=== PATIENT | female | born 1935 | race Caucasian/White ===

== ENCOUNTER 2017-11-18 08:52 | Emergency (ER) | payer MEDICARE, BC ==
[~2017-11-18] VITALS: Ht 5116.1 cm; Wt 47.0 kg
[~2017-11-18 08:52] MED LIST: ASPI81TA52 PO; CYCL-1 PO; DOCU-20 PO; ESOM40CA30 PO; LEVO25TA7 PO; LISI-604 PO; NIFE60TA69 PO
[2017-11-18 09:51] VITALS: BP 150/88
== END 2017-11-18 09:54 | disposition home or self-care (01) ==
LOC: ER 08:52
DX: R21 Rash and other nonspecific skin eruption (principal); L98.8 Other specified disorders of the skin and subcutaneous tissue; I10 Essential (primary) hypertension; Z79.82 Long term (current) use of aspirin; Z88.0 Allergy status to penicillin
CPT/HCPCS: 99281

== ENCOUNTER 2019-05-23 03:05 | Inpatient (IN) | payer MEDICARE, BC ==
[~2019-05-23] VITALS: Ht 154.9 cm; Wt 49.1 kg
[~2019-05-23 03:05] MED LIST changes: -ESOM40CA30 PO; +ESOM40CA49 PO
[2019-05-23 03:39] LABS: ALANINE AMINOTRANSFERASE 24 U/L (12-78); ALBUMIN 3.7 G/DL (3.4-5.0); ALKALINE PHOSPHATASE 102 IU/L (46-116); ANION GAP 9 (8-16); ASPARTATE AMINO TRANSFERASE 20 U/L (10-37); BILIRUBIN,TOTAL 0.3 MG/DL (0.1-1.0); BLOOD UREA NITROGEN 21 MG/DL (7-18); BUN/CREATININE RATIO 15.9 (6.6-38.0); CALCIUM 9.3 MG/DL (8.5-10.1); CHLORIDE 101 MMOL/L (99-107); CREATININE 1.32 MG/DL (0.40-0.90); GLUCOSE 139 MG/DL (70-104); POTASSIUM 4.3 MMOL/L (3.5-5.1); SODIUM 134 MMOL/L (135-145); TOTAL CARBON DIOXIDE 23.6 MMOL/L (24-32); TOTAL PROTEIN 7.5 G/DL (6.4-8.2); eGFR 38 ML/MIN
[2019-05-23 03:40] LABS: BASOPHILS % (AUTO) 0.2 % (0-1); EOSINOPHILS # (AUTO) 0.1 X10'3 (0-0.9); EOSINOPHILS % (AUTO) 1.5 % (0-6); HEMATOCRIT 35.5 % (35.0-45.0); LYMPHOCYTES # (AUTO) 1.2 X10'3 (1.1-4.8); LYMPHOCYTES % (AUTO) 13.3 % (21-51); MEAN CORPUSCULAR HEMOGLOBIN 28.9 PG (27.0-31.0); MEAN CORPUSCULAR HGB CONC 33.7 g/dL (33.0-36.5); MEAN CORPUSCULAR VOLUME 85.6 FL (78-98); MEAN PLATELET VOLUME 7.6 FL (7.4-10.4); MONOCYTES # (AUTO) 0.5 X10'3 (0-0.9); MONOCYTES % (AUTO) 5.3 % (2-12); NEUTROPHILS % (AUTO) 79.7 % (42-75); PARTIAL THROMBOPLASTIN TIME 26 SECONDS (22-32); PLATELET COUNT 342 X10'3 (140-440); RED BLOOD COUNT 4.15 X10'6 (4.20-5.60); RED CELL DISTRIBUTION WIDTH 14.4 % (11.5-14.5); WHITE BLOOD COUNT 8.8 X10'3 (4.5-11.0)
[2019-05-23 03:44] LABS: TROPONIN I < 0.04 NG/ML (0.0-0.05)
[2019-05-23] MEDS ORDERED: mag hydrox/Alum hydrox/simeth 30ml oral suspension PO ONE (04:00)
[2019-05-23] MEDS ORDERED: ESOMEPRAZOLE 40 MG VIAL IV ONE (04:00)
[2019-05-23] MEDS ORDERED: famotidine 20mg tablet PO ONE (04:00)
[2019-05-23] MEDS ORDERED: pantoprazole 40 MG vial IV ONE (04:00)
--- NOTE | 2019-05-23 04:13 | NUR ---
walked pt to the bathroom, she states she had diarrhea
--- NOTE | 2019-05-23 05:24 | NUR ---
pt is supine in bed, no needs at this time, warm blanket given
--- NOTE | 2019-05-23 05:27 | NUR ---
walked pt to the bathroom states she is going to have loose stool again, let provider know
[2019-05-23] MEDS ORDERED: loperamide 2mg capsule PO ONE (05:30)
--- NOTE | 2019-05-23 05:45 | NUR ---
spoke to pt about ng tube placement, she wants to call her children first and has had to run to br multiple times in last hour,
[2019-05-23] MEDS ORDERED: LEVO75TA PO (05:53)
[2019-05-23] MEDS ORDERED: LEVO25TA2 PO (05:53)
[2019-05-23] MEDS ORDERED: OMEP40CA13 PO (05:54)
--- NOTE | 2019-05-23 05:57 | NUR ---
provider letting pt know she has a small bowl obstruction
--- NOTE | 2019-05-23 06:22 | NUR ---
spoke to oncoming nurse re NG tube, pt is going to CT and does not really want it, would like to wait, she is ok with it
--- NOTE | 2019-05-23 06:27 | NUR ---
PT TO CT
[2019-05-23] MEDS ORDERED: LIDOcaine Viscous 15ml cup MM ONE (07:05)
[2019-05-23] MEDS ORDERED: HYDROmorphone inj. 0.5 MG/0.5 ML DISP.SYRIN IV PRN (07:10)
[2019-05-23] MEDS ORDERED: metoclopramide 5 mg/ml inj IV PRN (07:10)
[2019-05-23] MEDS ORDERED: potassium CL 10mEq/100ml bag 100 ML IV PRN ×2 (07:10)
[2019-05-23] MEDS ORDERED: potassium Cl 20 mEq SR tablet PO PRN ×2 (07:10)
[2019-05-23] MEDS ORDERED: magnesium 2GM in 50ml NS 50 ML IV PRN (07:10)
[2019-05-23] MEDS ORDERED: acetaminophen 325mg tablet PO PRN (07:10)
[2019-05-23] MEDS ORDERED: magnesium 4gm in 100ml NS 100 ML IV PRN (07:10)
[2019-05-23] MEDS ORDERED: ondansetron/PF 4mg/2ml inj IV PRN (07:10)
[2019-05-23] MEDS ORDERED: mag hydrox/Alum hydrox/simeth 30ml oral suspension PO PRN (07:10)
[2019-05-23] MEDS ORDERED: magnesium hydroxide 30ml (MOM) UD suspension PO PRN (07:10)
[2019-05-23] MEDS ORDERED: magnesium Cl slow-release 64mg tablet PO PRN (07:10)
[2019-05-23] MEDS ORDERED: NIFEdipine XL 30mg tablet PO SCH (08:00)
[2019-05-23] MEDS: K and/or MAG REPLACEMENT MC SCH (08:00)
[2019-05-23] MEDS ORDERED: lisinopril 5mg tablet PO SCH (08:00)
[2019-05-23] MEDS ORDERED: enalaprilat dihydrate 2.5mg/2ml vial IV PRN (08:05)
[2019-05-23] MEDS ORDERED: diatrozoate meglu/diatrozoate sod (37% iodine) 120ML oral solution PO ONE ×2 (08:05→18:40)
[2019-05-23] MEDS: ESOMEPRAZOLE 40 MG VIAL IV SCH (08:21)
[2019-05-23] MEDS: normal saline 1000ml 1,000 ML IV SCH ×2 (08:21→20:26)
--- NOTE | 2019-05-23 08:33 | NUR ---
REPORT ATTEMPTED, ROOM NOT CLEAN, NURSE TO BE ALEKSANDAR
--- NOTE | 2019-05-23 11:00 | NUR ---
Pt arrived to floor. Report given by Radha Orr RN
[2019-05-23 11:15] VITALS: BP 187/102
[2019-05-23] MEDS: proCHLORperazine 10 MG/2 ml inj IV PRN (12:13)
--- NOTE | 2019-05-23 12:30 | NUR ---
BP high when pt arrived to floor 180's/100. PRN vasotec given. BP rechecked 40 minutes later and it was 183/92. Dr Hui aware and will be adding bp med.
[2019-05-23 16:30] VITALS: BP 169/84
[2019-05-23] MEDS: hydrALAZINE 20mg/ml inj. IV PRN (16:49)
[2019-05-23 17:24] VITALS: BP 161/88
--- NOTE | 2019-05-23 18:48 | NUR ---
Received report from Johanne BELL pt is resting on bed NG hooked up to suction on RA in no apparent distress
[2019-05-23 19:00] VITALS: BP 156/90
--- NOTE | 2019-05-23 19:00 | NUR ---
Problems reprioritized. Patient report given, questions answered & plan of care reviewed with Velia BELL.
[2019-05-23] MEDS ORDERED: diatr meglu/diatrizoate 30ml oral sol.-(3 dose) bottle PO ONE (19:35)
[2019-05-23] MEDS ORDERED: temazepam 15mg capsule PO PRN (21:00)
[2019-05-23] MEDS ORDERED: diatr meglu/diatrizoate 30ml oral sol.-(3 dose) bottle PO SCH ×2 (21:00)
[2019-05-24] VITALS: BP 158/84
--- NOTE | 2019-05-24 06:36 | NUR ---
Gave report to Johanne BELL pt is resting on RA, NG hooked up to low suction, in no apparent distress, call light and items of freq use within reach.
[2019-05-24 07:00] VITALS: BP 178/101
[2019-05-24] MEDS: K and/or MAG REPLACEMENT MC SCH (07:11)
[2019-05-24] MEDS: ESOMEPRAZOLE 40 MG VIAL IV SCH (07:14)
[2019-05-24] MEDS: hydrALAZINE 20mg/ml inj. IV PRN (07:57)
[2019-05-24 08:38] VITALS: BP 152/79
[2019-05-24 11:00] VITALS: BP 155/93
[2019-05-24] MEDS: proCHLORperazine 10 MG/2 ml inj IV PRN (12:31)
[2019-05-24] MEDS: normal saline 1000ml 1,000 ML IV SCH (12:38)
--- NOTE | 2019-05-24 18:36 | NUR ---
Problems reprioritized. Patient report given, questions answered & plan of care reviewed with Velia BELL.
--- NOTE | 2019-05-24 18:36 | NUR ---
Received report from Johanne BELL pt is resting on RA in no apparent distress, call light and items of freq use within reach.
[2019-05-24 19:00] VITALS: BP 164/90
[2019-05-25 00:40] VITALS: BP 162/86
[2019-05-25] MEDS: normal saline 1000ml 1,000 ML IV SCH (02:56)
--- NOTE | 2019-05-25 06:12 | NUR ---
Problems reprioritized. Patient report given, questions answered & plan of care reviewed with Dayan BELL.
[2019-05-25] MEDS: ESOMEPRAZOLE 40 MG VIAL IV SCH (07:36)
[2019-05-25] MEDS: hydrALAZINE 20mg/ml inj. IV PRN (07:40)
[2019-05-25] MEDS: K and/or MAG REPLACEMENT MC SCH (07:43)
--- NOTE | 2019-05-25 07:46 | NUR ---
Problems reprioritized. Patient report given, questions answered & plan of care reviewed with RAY Pan.
--- NOTE | 2019-05-25 09:18 | NUR ---
fitness technician called to report pt hr is 180's. She is using the restroom and walking around. Viviane BELL aware.
[2019-05-25 11:13] VITALS: BP 131/75
[2019-05-25] MEDS ORDERED: METO25TA6 PO (13:08)
--- NOTE | 2019-05-25 13:53 | NUR ---
Discharge completed with education on nursing end, waiting on ride home.
--- NOTE | 2019-05-25 14:07 | NUR ---
All belongings bagged and sent with patient. Education on next doses for meds completed with patient with understanding stated. Patient dressed self. Report of 2 BMs today and charted. Side effects discussed with patient on new HTN medications and education completed. Patient understands to take 1/2 a tab in the AM and at NOC, Understanding completed and stated by patient.
[2019-05-26] MEDS ORDERED: levoTHYROXINE 25mcg tablet PO SCH (08:00)
[2019-05-26] MEDS ORDERED: aspirin 81mg tablet.DR PO SCH (08:00)
[2019-05-26] MEDS ORDERED: levoTHYROXINE 75mcg tablet PO SCH (08:00)
== END 2019-05-25 14:36 | disposition home or self-care (01) | DRG 389 ==
LOC: ER 03:06 → SUR 3N 10:41
PROVIDERS: ADMIT Family Medicine; ATTEND Family Medicine
PROC: 0D9670Z Drainage of Stomach with Drainage Device, Via Natural or Artificial Opening (ICD-10-PCS; principal; 2019-05-23)
DX: K56.600 Partial intestinal obstruction, unspecified as to cause (principal); E87.1 Hypo-osmolality and hyponatremia; N18.9 Chronic kidney disease, unspecified; E03.9 Hypothyroidism, unspecified; I12.9 Hypertensive chronic kidney disease with stage 1 through stage 4 chronic kidney disease, or unspecified chronic kidney disease; M19.90 Unspecified osteoarthritis, unspecified site; F32.9 Major depressive disorder, single episode, unspecified; F41.9 Anxiety disorder, unspecified; K59.00 Constipation, unspecified; R00.0 Tachycardia, unspecified; Z88.0 Allergy status to penicillin; Z87.440 Personal history of urinary (tract) infections; Z79.899 Other long term (current) drug therapy
CPT/HCPCS: 36415; 71045; 71250; 74176; 76937; 80053; 83605; 84484; 85025; 85610; 85730; 87081; 93005; 96374; 96375; 99285; G0378; J0360; J0780; J1170; J2405; J7030; Q9963

== ENCOUNTER 2021-06-03 06:26 | Emergency (ER) | payer MEDICARE, BC ==
[~2021-06-03] VITALS: Ht 154.9 cm; Wt 48.2 kg
[~2021-06-03 06:26] MED LIST changes: -CYCL-1 PO; -DOCU-20 PO; -ESOM40CA49 PO; +LEVO25TA2 PO; -LEVO25TA7 PO; -LISI-604 PO; +LISI-790 PO; +LOP25T PO; -NIFE60TA69 PO; +OMEP20TA23 PO; +TRAM50TA2 PO
[2021-06-03] MEDS ORDERED: pantoprazole 40 MG vial IV ONE (06:55)
[2021-06-03] MEDS ORDERED: normal saline 1000ML IV soln IVB ONE (06:55)
[2021-06-03 07:01] LABS: BASOPHILS % (AUTO) 0.1 % (0-1); EOSINOPHILS % (AUTO) 0.1 % (0-6); HEMATOCRIT 24.7 % (35.0-45.0); HEMOGLOBIN 7.8 g/dl (12.0-16.0); LYMPHOCYTES # (AUTO) 0.2 X10'3 (1.1-4.8); LYMPHOCYTES % (AUTO) 3.3 % (21-51); MEAN CORPUSCULAR HEMOGLOBIN 22.5 PG (27.0-31.0); MEAN CORPUSCULAR HGB CONC 31.4 g/dL (33.0-36.5); MEAN CORPUSCULAR VOLUME 71.5 FL (78-98); MEAN PLATELET VOLUME 7.2 FL (7.4-10.4); MONOCYTES # (AUTO) 0.2 X10'3 (0-0.9); MONOCYTES % (AUTO) 2.5 % (2-12); NEUTROPHILS # (AUTO) 6.5 X10'3 (1.8-7.7); PLATELET COUNT 310 X10'3 (140-440); RED BLOOD COUNT 3.46 X10'6 (4.20-5.60); RED CELL DISTRIBUTION WIDTH 18.2 % (11.5-14.5); WHITE BLOOD COUNT 6.9 X10'3 (4.5-11.0)
[2021-06-03 07:10] LABS: ALANINE AMINOTRANSFERASE 14 U/L (12-78); ALBUMIN 3.6 G/DL (3.4-5.0); ALKALINE PHOSPHATASE 91 IU/L (46-116); ANION GAP 11 (8-16); ASPARTATE AMINO TRANSFERASE 12 U/L (10-37); BILIRUBIN,TOTAL 0.3 MG/DL (0.1-1.0); BLOOD UREA NITROGEN 29 MG/DL (7-18); BUN/CREATININE RATIO 20.6 (6.6-38.0); CALCIUM 8.7 MG/DL (8.5-10.1); CHLORIDE 107 MMOL/L (99-107); CREATININE 1.41 MG/DL (0.40-0.90); GLUCOSE 149 MG/DL (70-104); POTASSIUM 3.8 MMOL/L (3.5-5.1); SODIUM 140 MMOL/L (135-145); TOTAL CARBON DIOXIDE 22.4 MMOL/L (24-32); TOTAL PROTEIN 7.2 G/DL (6.4-8.2); eGFR 35 ML/MIN
[2021-06-03 07:11] LABS: CLARITY,URINE SLIGHTLY CLOUDY (Clear); COLOR,URINE YELLOW (Yellow); GLUCOSE, URINE NEGATIVE (Neg); KETONES,URINE NEGATIVE (Neg); LEUKOCYTE ESTERASE ,URINE NEGATIVE (Neg); NITRITES, URINE NEGATIVE (Neg); OCCULT BLOOD,URINE LARGE (Neg); PH,URINE 6.5 (4.8-8.0); PROTEIN,URINE 100 mg/dl (Neg); UROBILINOGEN,URINE 0.2 E.U/dL (0.2-1.0)
[2021-06-03 07:16] LABS: LIPASE 102 U/L (73-393)
--- NOTE | 2021-06-03 07:20 | NUR ---
pt to xray
[2021-06-03 07:22] LABS: UA COLLECTION TYPE CLN CATCH MIDSTREAM
[2021-06-03 07:23] LABS: WBC,URINE 0-4 /HPF (0-4)
[2021-06-03 07:24] LABS: AMORPHOUS PHOSPHATES 1+; BACTERIA,URINE 2+ /HPF (Neg); MUCUS STRANDS FEW /LPF (Neg); SQUAMOUS EPITHELIAL CELL,UR FEW /LPF (FEW)
[2021-06-03] MEDS ORDERED: LIDOcaine Viscous 15ml cup MM ONE (09:35)
[2021-06-03] MEDS ORDERED: mag hydrox/Alum hydrox/simeth 30ml oral suspension PO ONE (09:35)
[2021-06-03 10:09] VITALS: BP 164/119
[2021-06-03] MEDS ORDERED: SUCR1ORA12 PO (10:55)
[2021-06-03] MEDS ORDERED: ONDA4TAB12 PO (10:55)
== END 2021-06-03 11:40 | disposition home or self-care (01) ==
LOC: ER 06:26
DX: R11.2 Nausea with vomiting, unspecified (principal); K21.9 Gastro-esophageal reflux disease without esophagitis; K44.9 Diaphragmatic hernia without obstruction or gangrene; I10 Essential (primary) hypertension; M19.90 Unspecified osteoarthritis, unspecified site; Z87.440 Personal history of urinary (tract) infections; Z86.2 Personal history of diseases of the blood and blood-forming organs and certain disorders involving the immune mechanism; Z88.0 Allergy status to penicillin; Z79.82 Long term (current) use of aspirin; Z79.899 Other long term (current) drug therapy
CPT/HCPCS: 36415; 74022; 80053; 81001; 83690; 84484; 85025; 87077; 87088; 87186; 96374; 99284; C9113; J7030

== ENCOUNTER 2022-02-02 09:45 | Emergency (ER) | payer MEDICARE, BC ==
[~2022-02-02] VITALS: Ht 154.9 cm; Wt 46.8 kg
[~2022-02-02 09:45] MED LIST changes: -LISI-790 PO; +LISI5TAB22 PO; +ONDA4TAB12 PO; +SUCR1ORA12 PO
[2022-02-02] MEDS ORDERED: normal saline 1000ML IV soln IVB ONE (09:55)
[2022-02-02] MEDS ORDERED: famotidine/PF 10 mg/ml inj IV ONE (09:55)
[2022-02-02] MEDS ORDERED: ondansetron/PF 4mg/2ml inj IV ONE (09:55)
[2022-02-02] MEDS ORDERED: NIFE90TA44 PO (10:02)
[2022-02-02 10:05] LABS: BASOPHILS % (AUTO) 0.2 % (0-1); EOSINOPHILS % (AUTO) 0.3 % (0-6); HEMATOCRIT 32.2 % (35.0-45.0); HEMOGLOBIN 10.7 g/dl (12.0-16.0); LYMPHOCYTES # (AUTO) 0.7 X10'3 (1.1-4.8); LYMPHOCYTES % (AUTO) 10.6 % (21-51); MEAN CORPUSCULAR HEMOGLOBIN 28.5 PG (27.0-31.0); MEAN CORPUSCULAR HGB CONC 33.2 g/dL (33.0-36.5); MEAN CORPUSCULAR VOLUME 85.8 FL (78-98); MEAN PLATELET VOLUME 7.2 FL (7.4-10.4); MONOCYTES # (AUTO) 0.5 X10'3 (0-0.9); MONOCYTES % (AUTO) 7.2 % (2-12); NEUTROPHILS # (AUTO) 5.2 X10'3 (1.8-7.7); NEUTROPHILS % (AUTO) 81.7 % (42-75); PLATELET COUNT 368 X10'3 (140-440); RED BLOOD COUNT 3.75 X10'6 (4.20-5.60); WHITE BLOOD COUNT 6.4 X10'3 (4.5-11.0)
[2022-02-02 10:19] LABS: ALANINE AMINOTRANSFERASE 12 U/L (12-78); ALBUMIN 3.4 G/DL (3.4-5.0); ALBUMIN/GLOBULIN RATIO 0.9 (1.1-1.5); ALKALINE PHOSPHATASE 98 IU/L (46-116); ANION GAP 9 (8-16); ASPARTATE AMINO TRANSFERASE 14 U/L (10-37); BILIRUBIN,TOTAL 0.4 MG/DL (0.1-1.0); BLOOD UREA NITROGEN 24 MG/DL (7-18); BUN/CREATININE RATIO 18.6 (6.6-38.0); CALCIUM 8.9 MG/DL (8.5-10.1); CHLORIDE 102 MMOL/L (99-107); CREATININE 1.29 MG/DL (0.40-0.90); GLUCOSE 118 MG/DL (70-104); LIPASE 92 U/L (73-393); POTASSIUM 4.4 MMOL/L (3.5-5.1); SODIUM 133 MMOL/L (135-145); TOTAL CARBON DIOXIDE 21.6 MMOL/L (24-32); TOTAL PROTEIN 7.1 G/DL (6.4-8.2); eGFR 39 ML/MIN
--- NOTE | 2022-02-02 10:20 | NUR ---
Patient states she unable to give urine at this time.
[2022-02-02] MEDS ORDERED: LIDOcaine Viscous 15ml cup MM ONE (11:25)
[2022-02-02] MEDS ORDERED: mag hydrox/Alum hydrox/simeth 30ml oral suspension PO ONE (11:25)
[2022-02-02] MEDS ORDERED: sucralfate 1 gm tablet PO ONE (11:25)
[2022-02-02 12:09] LABS: CLARITY,URINE CLEAR (Clear); GLUCOSE, URINE NEGATIVE (Neg); KETONES,URINE NEGATIVE (Neg); LEUKOCYTE ESTERASE ,URINE NEGATIVE (Neg); NITRITES, URINE NEGATIVE (Neg); OCCULT BLOOD,URINE TRACE-LYSED (Neg); PROTEIN,URINE TRACE mg/dl (Neg); UROBILINOGEN,URINE 0.2 E.U/dL (0.2-1.0)
[2022-02-02 12:10] LABS: COLOR,URINE STRAW (Yellow); UA COLLECTION TYPE CLN CATCH MIDSTREAM
[2022-02-02 12:15] LABS: BACTERIA,URINE 1+ /HPF (Neg); MUCUS STRANDS FEW /LPF (Neg); RBC,URINE 0-2 /HPF (0-2); SQUAMOUS EPITHELIAL CELL,UR FEW /LPF (FEW); WBC,URINE 0-4 /HPF (0-4)
[2022-02-02 13:16] VITALS: BP 178/94
== END 2022-02-02 13:57 | disposition home or self-care (01) ==
LOC: ER 09:46
DX: R10.13 Epigastric pain (principal); K29.70 Gastritis, unspecified, without bleeding; R11.0 Nausea; I10 Essential (primary) hypertension; K21.9 Gastro-esophageal reflux disease without esophagitis; Z86.2 Personal history of diseases of the blood and blood-forming organs and certain disorders involving the immune mechanism; Z87.440 Personal history of urinary (tract) infections; Z88.0 Allergy status to penicillin; Z79.82 Long term (current) use of aspirin; Z79.899 Other long term (current) drug therapy
CPT/HCPCS: 36415; 74018; 80053; 81001; 83690; 85025; 96361; 96374; 96375; 99284; J2405; J3490; J7030

== ENCOUNTER 2022-04-08 23:47 | Inpatient (IN) | payer MEDICARE, BC ==
[~2022-04-08] VITALS: Ht 154.9 cm; Wt 46.0 kg
[~2022-04-08 23:47] MED LIST changes: +NIFE90TA44 PO
[2022-04-09] MEDS ORDERED: morphine 2 MG/ML inj. syringe IV ONE (02:25)
[2022-04-09] MEDS ORDERED: ondansetron/PF 4mg/2ml inj IV ONE (02:25)
[2022-04-09 02:45] LABS: ALANINE AMINOTRANSFERASE 23 U/L (12-78); ALBUMIN 3.7 G/DL (3.4-5.0); ALBUMIN/GLOBULIN RATIO 0.9 (1.1-1.5); ALKALINE PHOSPHATASE 118 IU/L (46-116); ANION GAP 13 (8-16); ASPARTATE AMINO TRANSFERASE 24 U/L (10-37); BILIRUBIN,TOTAL 0.2 MG/DL (0.1-1.0); BLOOD UREA NITROGEN 32 MG/DL (7-18); BUN/CREATININE RATIO 21.5 (6.6-38.0); CALCIUM 9.1 MG/DL (8.5-10.1); CHLORIDE 106 MMOL/L (99-107); CREATININE 1.49 MG/DL (0.40-0.90); GLUCOSE 121 MG/DL (70-104); POTASSIUM 3.6 MMOL/L (3.5-5.1); SODIUM 141 MMOL/L (135-145); TOTAL CARBON DIOXIDE 22.5 MMOL/L (24-32); TOTAL PROTEIN 7.6 G/DL (6.4-8.2); eGFR 33 ML/MIN
[2022-04-09 02:49] LABS: BASOPHILS % (AUTO) 0.6 % (0-1); EOSINOPHILS # (AUTO) 0.1 X10'3 (0-0.9); EOSINOPHILS % (AUTO) 2.2 % (0-6); HEMATOCRIT 31.4 % (35.0-45.0); HEMOGLOBIN 10.4 g/dl (12.0-16.0); LYMPHOCYTES # (AUTO) 0.8 X10'3 (1.1-4.8); LYMPHOCYTES % (AUTO) 13.8 % (21-51); MEAN CORPUSCULAR HEMOGLOBIN 27.9 PG (27.0-31.0); MEAN CORPUSCULAR VOLUME 84.5 FL (78-98); MEAN PLATELET VOLUME 8.2 FL (7.4-10.4); MONOCYTES # (AUTO) 0.5 X10'3 (0-0.9); MONOCYTES % (AUTO) 7.8 % (2-12); NEUTROPHILS # (AUTO) 4.5 X10'3 (1.8-7.7); NEUTROPHILS % (AUTO) 75.6 % (42-75); PLATELET COUNT 297 X10'3 (140-440); RED BLOOD COUNT 3.72 X10'6 (4.20-5.60); RED CELL DISTRIBUTION WIDTH 16.3 % (11.5-14.5); WHITE BLOOD COUNT 5.9 X10'3 (4.5-11.0)
[2022-04-09] MEDS ORDERED: HYDROmorphone inj. 0.5 MG/0.5 ML DISP.SYRIN IV PRN (03:40)
[2022-04-09] MEDS ORDERED: ondansetron 4mg rapidly disintigrating tab PO PRN (03:40)
[2022-04-09] MEDS ORDERED: magnesium hydroxide 30ml (MOM) UD suspension PO PRN (03:40)
[2022-04-09] MEDS ORDERED: diphenhydrAMINE 50 mg/ml inj IV PRN (03:40)
[2022-04-09] MEDS ORDERED: acetaminophen 650mg rectal suppository RC PRN (03:40)
[2022-04-09] MEDS ORDERED: acetaminophen 325mg tablet PO PRN ×2 (03:40)
[2022-04-09] MEDS ORDERED: mag hydrox/Alum hydrox/simeth 30ml oral suspension PO PRN (03:40)
[2022-04-09] MEDS ORDERED: bisacodyl 10mg suppository rectal RC PRN (03:40)
[2022-04-09] MEDS ORDERED: diphenhydrAMINE 25mg capsule PO PRN (03:40)
[2022-04-09] MEDS ORDERED: morphine 2 MG/ML inj. syringe IV PRN ×2 (03:40)
[2022-04-09] MEDS ORDERED: HYDROcodone/acetaminophen 5mg/325mg tablet PO PRN (03:40)
[2022-04-09 04:23] LABS: CLARITY,URINE CLEAR (Clear); COLOR,URINE YELLOW (Yellow); GLUCOSE, URINE NEGATIVE (Neg); KETONES,URINE NEGATIVE (Neg); LEUKOCYTE ESTERASE ,URINE NEGATIVE (Neg); NITRITES, URINE NEGATIVE (Neg); OCCULT BLOOD,URINE TRACE-INTACT (Neg); PROTEIN,URINE 30 mg/dl (Neg); UROBILINOGEN,URINE 0.2 E.U/dL (0.2-1.0)
[2022-04-09 04:26] LABS: HEMOGLOBIN A1C 5.6 % (4.5-6.2)
[2022-04-09 04:33] LABS: UA COLLECTION TYPE OTHER
[2022-04-09 04:34] LABS: MAGNESIUM 1.4 MG/DL (1.5-2.4); PHOSPHORUS 3.6 MG/DL (2.3-4.5)
[2022-04-09 04:34] LABS: BACTERIA,URINE NONE SEEN /HPF (Neg); RBC,URINE 0-2 /HPF (0-2); SQUAMOUS EPITHELIAL CELL,UR NONE SEEN /LPF (FEW); WBC,URINE NONE SEEN /HPF (0-4)
[2022-04-09] MEDS: normal saline 1000ml 1,000 ML IV SCH (04:50)
[2022-04-09] MEDS ORDERED: hydrALAZINE 20mg/ml inj. IV ONE (05:15)
--- NOTE | 2022-04-09 05:16 | NUR ---
SPOKE TO DR SOSA CONCERNING PT'S HIGH SYSTOLIC BP. HE GAVE ORDER TO GIVE HYDRALAZINE THAT IS SCHEDULED FOR 0800 AT THIS TIME.
[2022-04-09 07:17] LABS: APTT 25 SECONDS (22-32)
[2022-04-09] MEDS: pantoprazole 40mg Tablet.DR PO SCH (07:29)
[2022-04-09] MEDS: heparin, porcine 5000 units/ml vial SQ SCH ×2 (07:35→20:31)
[2022-04-09] MEDS: hydrALAZINE 20mg/ml inj. IV SCH ×3 (07:36→20:31)
[2022-04-09] MEDS: docusate sod 100mg capsule PO SCH ×2 (07:41→20:30)
--- NOTE | 2022-04-09 09:20 | NUR ---
Patient in room ORTHO 4024A. I have received report from RAY COMER FROM ER and had the opportunity to ask questions and assume patient care.
[2022-04-09 10:00] VITALS: BP 154/88
[2022-04-09] MEDS ORDERED: potassium CL 10mEq/100ml bag 100 ML IV PRN (10:55)
[2022-04-09] MEDS ORDERED: magnesium 4gm in 100ml NS 100 ML IV PRN (10:55)
[2022-04-09] MEDS ORDERED: potassium Cl 20 mEq SR tablet PO PRN ×2 (10:55)
[2022-04-09] MEDS ORDERED: METO-395 PO (14:03)
[2022-04-09] MEDS ORDERED: NIFE60TA79 PO (14:04)
[2022-04-09] MEDS: HYDROcodone/acetaminophen 10/325mg tab PO PRN (14:21)
[2022-04-09 17:30] VITALS: BP 150/80
[2022-04-09 18:00] VITALS: BP 173/91
--- NOTE | 2022-04-09 18:29 | NUR ---
Problems reprioritized. Patient report given, questions answered & plan of care reviewed with RAY NORRIS.
[2022-04-09] MEDS ORDERED: metoprolol succinate 25mg (24-HOUR) SR. Tablet PO SCH (20:00)
[2022-04-09] MEDS: K and/or MAG REPLACEMENT MC SCH (20:00)
[2022-04-09] MEDS ORDERED: temazepam 15mg capsule PO PRN (21:00)
[2022-04-09] MEDS: ondansetron/PF 4mg/2ml inj IV PRN (21:18)
[2022-04-09 22:00] VITALS: BP 177/99
[2022-04-10 02:00] VITALS: BP 177/99
[2022-04-10] MEDS: hydrALAZINE 20mg/ml inj. IV SCH ×3 (02:38→14:00)
[2022-04-10 05:36] LABS: BASOPHILS % (AUTO) 0.6 % (0-1); EOSINOPHILS % (AUTO) 0.2 % (0-6); HEMATOCRIT 27.4 % (35.0-45.0); HEMOGLOBIN 9.3 g/dl (12.0-16.0); LYMPHOCYTES # (AUTO) 0.4 X10'3 (1.1-4.8); LYMPHOCYTES % (AUTO) 8.4 % (21-51); MEAN CORPUSCULAR HEMOGLOBIN 28.4 PG (27.0-31.0); MEAN CORPUSCULAR HGB CONC 33.8 g/dL (33.0-36.5); MEAN PLATELET VOLUME 8.5 FL (7.4-10.4); MONOCYTES # (AUTO) 0.5 X10'3 (0-0.9); NEUTROPHILS # (AUTO) 4.2 X10'3 (1.8-7.7); NEUTROPHILS % (AUTO) 80.8 % (42-75); PLATELET COUNT 240 X10'3 (140-440); RED BLOOD COUNT 3.26 X10'6 (4.20-5.60); RED CELL DISTRIBUTION WIDTH 16.6 % (11.5-14.5); WHITE BLOOD COUNT 5.2 X10'3 (4.5-11.0)
[2022-04-10 05:49] LABS: ALBUMIN 2.7 G/DL (3.4-5.0); ANION GAP 10 (8-16); BILIRUBIN,TOTAL 0.4 MG/DL (0.1-1.0); BLOOD UREA NITROGEN 20 MG/DL (7-18); BUN/CREATININE RATIO 21.1 (6.6-38.0); CALCIUM 8.7 MG/DL (8.5-10.1); CHLORIDE 105 MMOL/L (99-107); CREATININE 0.95 MG/DL (0.40-0.90); GLUCOSE 111 MG/DL (70-104); MAGNESIUM 1.3 MG/DL (1.5-2.4); PHOSPHORUS 3.1 MG/DL (2.3-4.5); POTASSIUM 3.6 MMOL/L (3.5-5.1); SODIUM 137 MMOL/L (135-145); TOTAL CARBON DIOXIDE 22.1 MMOL/L (24-32); TOTAL PROTEIN 6.4 G/DL (6.4-8.2); eGFR 56 ML/MIN
[2022-04-10 05:50] LABS: ALANINE AMINOTRANSFERASE 14 U/L (12-78); ALBUMIN/GLOBULIN RATIO 0.7 (1.1-1.5); ALKALINE PHOSPHATASE 89 IU/L (46-116); ASPARTATE AMINO TRANSFERASE 14 U/L (10-37); CHOLESTEROL 204 MG/DL (0-200); HDL CHOLESTEROL 67 MG/DL (35-60); LDL CHOLESTEROL 118 MG/DL (50-100); TRIGLYCERIDES 87 MG/DL (20-135)
[2022-04-10 06:00] VITALS: BP 162/85
--- NOTE | 2022-04-10 07:16 | NUR ---
Patient in room ORTHO 4024A. I have received report from RAY NORRIS and had the opportunity to ask questions and assume patient care.
[2022-04-10] MEDS ORDERED: non-formulary drug (Omeprazole Magnesium (Prilosec Otc) 1 TAB) PO SCH (08:00)
[2022-04-10] MEDS: K and/or MAG REPLACEMENT MC SCH ×2 (08:00→20:00)
[2022-04-10] MEDS: lisinopril 5mg tablet PO SCH (08:32)
[2022-04-10] MEDS: magnesium Cl slow-release 64mg tablet PO PRN ×2 (08:32→20:22)
[2022-04-10] MEDS: NIFEdipine XL 30mg tablet PO SCH (08:32)
[2022-04-10] MEDS: docusate sod 100mg capsule PO SCH ×2 (08:33→20:13)
[2022-04-10] MEDS: levoTHYROXINE 25mcg tablet PO SCH (08:33)
[2022-04-10] MEDS: pantoprazole 40mg Tablet.DR PO SCH (08:34)
[2022-04-10] MEDS: ondansetron/PF 4mg/2ml inj IV PRN (08:44)
[2022-04-10] MEDS: heparin, porcine 5000 units/ml vial SQ SCH ×2 (08:58→20:13)
[2022-04-10 10:00] VITALS: BP 145/80
[2022-04-10 18:00] VITALS: BP 100/60
--- NOTE | 2022-04-10 18:50 | NUR ---
HEMALATHA RM 4024A: LOST PATIENT IV, DOES PATIENT NEED AN IV? THANK YOU DE [id number] Addendum: 04/10/22 at 1851 by Ivette Kraft RN JESSA CAMPBELL IV
--- NOTE | 2022-04-10 18:50 | NUR ---
Problems reprioritized. Patient report given, questions answered & plan of care reviewed with GARIMA PAINTING RN.
--- NOTE | 2022-04-10 18:55 | NUR ---
Patient in room ORTHO 4024. I have received report from NATALIE BELL and had the opportunity to ask questions and assume patient care.
[2022-04-10] MEDS: metoprolol succinate 25mg (24-HOUR) SR. Tablet PO SCH (20:13)
[2022-04-10 22:00] VITALS: BP 111/64
[2022-04-11] MEDS: normal saline 1000ml 1,000 ML IV SCH (00:54)
[2022-04-11 06:00] VITALS: BP 139/73
--- NOTE | 2022-04-11 06:26 | NUR ---
Problems reprioritized. Patient report given, questions answered & plan of care reviewed with VALENTINA BELL.
--- NOTE | 2022-04-11 06:52 | NUR ---
Patient in room ORTHO 4024. I have received report from Fadumo Thorne RN and had the opportunity to ask questions and assume patient care.
[2022-04-11 06:56] LABS: BASOPHILS % (AUTO) 0.6 % (0-1); EOSINOPHILS # (AUTO) 0.1 X10'3 (0-0.9); EOSINOPHILS % (AUTO) 1.5 % (0-6); HEMATOCRIT 24.5 % (35.0-45.0); LYMPHOCYTES # (AUTO) 0.5 X10'3 (1.1-4.8); LYMPHOCYTES % (AUTO) 15.4 % (21-51); MEAN CORPUSCULAR HEMOGLOBIN 27.9 PG (27.0-31.0); MEAN CORPUSCULAR HGB CONC 32.8 g/dL (33.0-36.5); MEAN CORPUSCULAR VOLUME 84.9 FL (78-98); MEAN PLATELET VOLUME 8.4 FL (7.4-10.4); MONOCYTES # (AUTO) 0.5 X10'3 (0-0.9); MONOCYTES % (AUTO) 13.2 % (2-12); NEUTROPHILS # (AUTO) 2.4 X10'3 (1.8-7.7); NEUTROPHILS % (AUTO) 69.3 % (42-75); PLATELET COUNT 211 X10'3 (140-440); RED BLOOD COUNT 2.89 X10'6 (4.20-5.60); RED CELL DISTRIBUTION WIDTH 16.6 % (11.5-14.5); WHITE BLOOD COUNT 3.5 X10'3 (4.5-11.0)
[2022-04-11 07:40] LABS: ALANINE AMINOTRANSFERASE 13 U/L (12-78); ALBUMIN 2.4 G/DL (3.4-5.0); ALBUMIN/GLOBULIN RATIO 0.8 (1.1-1.5); ALKALINE PHOSPHATASE 75 IU/L (46-116); ANION GAP 11 (8-16); ASPARTATE AMINO TRANSFERASE 16 U/L (10-37); BILIRUBIN,TOTAL 0.4 MG/DL (0.1-1.0); BLOOD UREA NITROGEN 26 MG/DL (7-18); BUN/CREATININE RATIO 16.8 (6.6-38.0); CALCIUM 8.4 MG/DL (8.5-10.1); CHLORIDE 107 MMOL/L (99-107); CREATININE 1.55 MG/DL (0.40-0.90); GLUCOSE 82 MG/DL (70-104); MAGNESIUM 1.4 MG/DL (1.5-2.4); PHOSPHORUS 3.4 MG/DL (2.3-4.5); SODIUM 139 MMOL/L (135-145); TOTAL CARBON DIOXIDE 21.4 MMOL/L (24-32); TOTAL PROTEIN 5.5 G/DL (6.4-8.2); eGFR 32 ML/MIN
[2022-04-11] MEDS: docusate sod 100mg capsule PO SCH ×2 (08:00→19:54)
[2022-04-11] MEDS: K and/or MAG REPLACEMENT MC SCH ×2 (08:00→20:00)
[2022-04-11 10:00] VITALS: BP 142/82
[2022-04-11] MEDS: pantoprazole 40mg Tablet.DR PO SCH (10:02)
[2022-04-11] MEDS: HYDROcodone/acetaminophen 10/325mg tab PO PRN (10:02)
[2022-04-11] MEDS: levoTHYROXINE 25mcg tablet PO SCH (10:03)
[2022-04-11] MEDS: metoprolol succinate 25mg (24-HOUR) SR. Tablet PO SCH ×2 (10:03→19:54)
[2022-04-11] MEDS: NIFEdipine XL 30mg tablet PO SCH (10:03)
[2022-04-11] MEDS: heparin, porcine 5000 units/ml vial SQ SCH ×2 (10:04→19:55)
[2022-04-11] MEDS: lisinopril 5mg tablet PO SCH (10:04)
[2022-04-11] MEDS: magnesium Cl slow-release 64mg tablet PO PRN ×2 (11:44→22:37)
[2022-04-11 18:00] VITALS: BP 113/59
--- NOTE | 2022-04-11 19:00 | NUR ---
Report given to Jessica
--- NOTE | 2022-04-11 19:05 | NUR ---
Patient in room ORTHO 4024. I have received report from VALENTINA BELL and had the opportunity to ask questions and assume patient care.
[2022-04-11 22:00] VITALS: BP 132/69
[2022-04-12 05:54] LABS: BASOPHILS % (AUTO) 0.8 % (0-1); EOSINOPHILS # (AUTO) 0.1 X10'3 (0-0.9); EOSINOPHILS % (AUTO) 3.3 % (0-6); HEMATOCRIT 25.1 % (35.0-45.0); HEMOGLOBIN 8.3 g/dl (12.0-16.0); LYMPHOCYTES # (AUTO) 0.7 X10'3 (1.1-4.8); LYMPHOCYTES % (AUTO) 21.7 % (21-51); MEAN CORPUSCULAR HGB CONC 32.9 g/dL (33.0-36.5); MEAN CORPUSCULAR VOLUME 85.2 FL (78-98); MEAN PLATELET VOLUME 8.2 FL (7.4-10.4); MONOCYTES # (AUTO) 0.5 X10'3 (0-0.9); MONOCYTES % (AUTO) 13.2 % (2-12); NEUTROPHILS # (AUTO) 2.1 X10'3 (1.8-7.7); PLATELET COUNT 220 X10'3 (140-440); RED BLOOD COUNT 2.95 X10'6 (4.20-5.60); RED CELL DISTRIBUTION WIDTH 16.4 % (11.5-14.5); WHITE BLOOD COUNT 3.4 X10'3 (4.5-11.0)
[2022-04-12 06:00] VITALS: BP 155/91
[2022-04-12 06:13] LABS: ALANINE AMINOTRANSFERASE 12 U/L (12-78); ALBUMIN 2.3 G/DL (3.4-5.0); ALBUMIN/GLOBULIN RATIO 0.7 (1.1-1.5); ALKALINE PHOSPHATASE 80 IU/L (46-116); ANION GAP 9 (8-16); ASPARTATE AMINO TRANSFERASE 13 U/L (10-37); BILIRUBIN,TOTAL 0.3 MG/DL (0.1-1.0); BLOOD UREA NITROGEN 31 MG/DL (7-18); BUN/CREATININE RATIO 17.1 (6.6-38.0); CALCIUM 8.5 MG/DL (8.5-10.1); CHLORIDE 104 MMOL/L (99-107); CREATININE 1.81 MG/DL (0.40-0.90); GLUCOSE 88 MG/DL (70-104); MAGNESIUM 1.6 MG/DL (1.5-2.4); PHOSPHORUS 3.6 MG/DL (2.3-4.5); POTASSIUM 4.3 MMOL/L (3.5-5.1); SODIUM 134 MMOL/L (135-145); TOTAL CARBON DIOXIDE 20.6 MMOL/L (24-32); TOTAL PROTEIN 5.7 G/DL (6.4-8.2); eGFR 26 ML/MIN
--- NOTE | 2022-04-12 06:24 | NUR ---
Problems reprioritized. Patient report given, questions answered & plan of care reviewed with ROSETTA BELL.
[2022-04-12] MEDS: K and/or MAG REPLACEMENT MC SCH (08:00)
[2022-04-12] MEDS: heparin, porcine 5000 units/ml vial SQ SCH (09:37)
[2022-04-12] MEDS: metoprolol succinate 25mg (24-HOUR) SR. Tablet PO SCH (09:37)
[2022-04-12] MEDS: levoTHYROXINE 25mcg tablet PO SCH (09:38)
[2022-04-12] MEDS: NIFEdipine XL 30mg tablet PO SCH (09:38)
[2022-04-12] MEDS: docusate sod 100mg capsule PO SCH (09:40)
[2022-04-12] MEDS: pantoprazole 40mg Tablet.DR PO SCH (09:40)
[2022-04-12] MEDS: lisinopril 5mg tablet PO SCH (09:40)
[2022-04-12 10:00] VITALS: BP 188/99
[2022-04-12] MEDS: HYDROcodone/acetaminophen 10/325mg tab PO PRN (14:48)
== END 2022-04-12 15:00 | DRG 562 ==
LOC: ER 23:48 → ED HOLD 04-09 03:42 → ORTHO 4S 04-09 10:27
PROVIDERS: ADMIT Family Medicine; ATTEND Family Medicine
DX: S42.202A Unspecified fracture of upper end of left humerus, initial encounter for closed fracture (principal); N17.0 Acute kidney failure with tubular necrosis; E46 Unspecified protein-calorie malnutrition; Z68.1 Body mass index [BMI] 19.9 or less, adult; J90 Pleural effusion, not elsewhere classified; E03.9 Hypothyroidism, unspecified; Z20.822 Contact with and (suspected) exposure to COVID-19; M19.90 Unspecified osteoarthritis, unspecified site; D64.9 Anemia, unspecified; I25.10 Atherosclerotic heart disease of native coronary artery without angina pectoris; M81.0 Age-related osteoporosis without current pathological fracture; Z96.641 Presence of right artificial hip joint; E78.5 Hyperlipidemia, unspecified; R91.8 Other nonspecific abnormal finding of lung field; I12.9 Hypertensive chronic kidney disease with stage 1 through stage 4 chronic kidney disease, or unspecified chronic kidney disease; S70.02XA Contusion of left hip, initial encounter; N18.9 Chronic kidney disease, unspecified; W01.0XXA Fall on same level from slipping, tripping and stumbling without subsequent striking against object, initial encounter; S76.012A Strain of muscle, fascia and tendon of left hip, initial encounter; K21.9 Gastro-esophageal reflux disease without esophagitis; Z79.890 Hormone replacement therapy; Y93.89 Activity, other specified; Y92.091 Bathroom in other non-institutional residence as the place of occurrence of the external cause; Y99.8 Other external cause status; Z88.0 Allergy status to penicillin; Z79.899 Other long term (current) drug therapy; Z79.82 Long term (current) use of aspirin; Z87.440 Personal history of urinary (tract) infections
CPT/HCPCS: 36415; 71045; 72192; 73020; 73502; 80053; 80061; 81001; 83036; 83735; 83880; 84100; 84443; 85025; 85610; 85730; 87635; 92508; 92616; 96374; 96375; 97110; 97116; 97162; 97530; 99285; A4565; G0378; J0360; J1644; J2270; J2405; J7030